=== PATIENT | female | born 1970 | race Hispanic/Latino ===

== ENCOUNTER → 2018-11-03 | Outpatient (CLI) | payer OTHER | END | disposition home or self-care (01) | LOC: OIH 13:48 | PROVIDERS: ATTEND Internal Medicine Cardiovascular Disease | DX: Z13.6 Encounter for screening for cardiovascular disorders (principal) | CPT/HCPCS: 75571 ==

== ENCOUNTER → 2019-12-20 | Outpatient (CLI) | payer MEDICAID ==
[~2019-12-20] MED LIST: GADODIAMIDE 10 MMOL/20 ML VIAL IV ONE
== END | disposition home or self-care (01) ==
LOC: RAH 12:12
PROVIDERS: ATTEND Family Medicine
DX: J34.1 Cyst and mucocele of nose and nasal sinus (principal); R20.1 Hypoesthesia of skin; H53.8 Other visual disturbances
CPT/HCPCS: 70553; A9579

== ENCOUNTER 2022-06-28 19:15 | Emergency (ER) | payer MEDICAID | END 2022-06-28 19:33 | disposition left against medical advice (07) | LOC: EDH 19:15 | DX: M79.642 Pain in left hand (principal); Z53.21 Procedure and treatment not carried out due to patient leaving prior to being seen by health care provider ==

== ENCOUNTER → 2025-10-05 | Outpatient (CLI) | payer OTHER ==
--- NOTE | 2025-10-07 08:25 | HMCIMG ---
EXAM: CT Cardiac calcium scoring. CLINICAL HISTORY: HEARTSAVER (Hx) / Ca Score. TECHNIQUE: Thin collimated axial CT cardiac images were obtained. A CT scan is done according to ALARA (As Low As Reasonably Achievable). CONTRAST: None. COMPARISON: None provided. FINDINGS: Calcium Score: VESSEL Lesions Calcium score(Agatson) LM 0 0 LAD 0 0 LCX 0 0 RCA 1 22.1 Total 1 22.1 IMPRESSION: The total calcium score is 22.1, corresponding to the 86th percentile based on the TALLEY calculator. Mild cardiomegaly with a prominent left ventricular chamber. Linear atelectatic changes and a few scattered centrilobular emphysematous changes in the included left lung field. Mild calcific atherosclerotic changes in the aorta. /[place]
== END | disposition home or self-care (01) ==
LOC: RAH 14:12
PROVIDERS: ATTEND Internal Medicine Cardiovascular Disease
DX: Z13.6 Encounter for screening for cardiovascular disorders (principal)
CPT/HCPCS: 75571